=== PATIENT | female | born 1995 | race Caucasian/White ===

== ENCOUNTER → 2019-09-01 | Outpatient (CLI) | payer OTHER ==
[2019-09-01 18:21] LABS: BASO % 0.2 % (0.0-1.0); EOS # 0.1 10^3/uL (0.0-0.5); EOS % 1.1 % (0.0-3.0); HEMATOCRIT 40.2 % (36.0-47.0); HEMOGLOBIN 12.9 g/dl (12.0-15.5); LYMPH # 2.1 10^3/uL (1.5-5.0); LYMPH % 25.9 % (24.0-44.0); MEAN CORPUSCULAR HEMOGLOBIN 29.6 pg (27.0-33.0); MEAN CORPUSCULAR HGB CONC 32.1 g/dl (32.0-36.5); MEAN CORPUSCULAR VOLUME 92.2 fl (80.0-96.0); MONO # 0.6 10^3/uL (0.0-0.8); MONO % 7.2 % (0.0-5.0); NEUTROPHILS # 5.3 10^3/uL (1.5-8.5); NEUTROPHILS % 65.1 % (36.0-66.0); PLATELET COUNT, AUTOMATED 277 10^3/uL (150-450); RED BLOOD COUNT 4.36 10^6/uL (4.00-5.40); WHITE BLOOD COUNT 8.2 10^3/uL (4.0-10.0)
[2019-09-01 21:13] LABS: CHLAMYDIA DNA AMPLIFICATION NEGATIVE (NEGATIVE); GC DNA AMPLIFICATION NEGATIVE (NEGATIVE)
[2019-09-02 12:30] LABS: HEPATITIS C VIRUS ABY INDEX < 0.0 INDEX (<0.8); HIV 1&2 SCREEN CENTAUR NEGATIVE (NEGATIVE); RUBELLA IgG QUALITATIVE IMMUNE (IMMUNE)
== END ==
LOC: M PLALAB 13:43
PROVIDERS: ATTEND Advanced Practice Midwife
DX: Z36.89 Encounter for other specified antenatal screening (principal)

== ENCOUNTER → 2019-09-13 | Outpatient (CLI) | payer OTHER | LOC: M PLALAB 11:56 | PROVIDERS: ATTEND Advanced Practice Midwife | DX: Z36.8A Encounter for antenatal screening for other genetic defects (principal) ==

== ENCOUNTER → 2019-12-13 | Outpatient (CLI) | payer OTHER ==
--- NOTE | 2019-12-13 18:19 | REP ---
Clinical: Anatomical evaluation. Comparison: None . Findings: Examination demonstrates a single live intrauterine in cephalic presentation. motion is identified by technologist. Placenta is noted anterior and grade I without evidence for placenta previa or abruption. Amniotic fluid volume is normal. Cervix measures 4.1 cm in length and appears closed. No evidence for nuchal cord. Gestational age by current measurements 21 weeks 6 days with CARLOS 04/18/2020 . FHR equals 150 beats per minute. BPD 5.3 cm 22 weeks 2 days HC 19.9 cm 22 weeks 0 days AC 17.1 cm 22 weeks 0 days FL 3.8 cm 22 weeks 2 days HL 3.6 cm 22 weeks 3 days HC/AC ratio 1.16 Estimated weight 480 grams ( 55th percentile). Anatomical assessment demonstrates normal structures including cranium, choroid plexus, cavum, cerebellum/posterior fossa, facial features, lungs, diaphragm, stomach, cord insertion, kidneys/bladder, spine, and extremities. A single umbilical artery noted. Limited evaluation of the heart/ventricular outflow tracts. Impression: 1. Single live intrauterine in cephalic presentation. Estimated weight within normal limits. 2. Anatomical limitations and findings as noted above.
== END ==
LOC: M WHC 09:51
PROVIDERS: ATTEND Obstetrics & Gynecology
DX: Z34.92 Encounter for supervision of normal pregnancy, unspecified, second trimester (principal)

== ENCOUNTER → 2020-01-16 | Outpatient (CLI) | payer OTHER ==
--- NOTE | 2020-01-17 02:55 | REP ---
Clinical: Anatomical evaluation. Comparison: 12/13/2019 . Findings: Examination demonstrates a single live intrauterine in cephalic presentation. motion is identified by technologist. Placenta is noted anterior and grade I without evidence for placenta previa or abruption. Amniotic fluid volume is normal. Cervix measures 3.6 cm in length and appears closed. No evidence for nuchal cord. Gestational age by first US 26 weeks 5 days with CARLOS 04/18/2020 . Gestational age by current measurements 26 weeks 6 days with CARLOS 04/17/2020 . FHR equals 143 beats per minute. Estimated weight 993 grams ( 46 percentile based on age by first ultrasound and current measurements ). Anatomical assessment demonstrates normal structures including cranium, facial features, diaphragm, stomach, cord insertion, and kidneys/bladder. Impression: Single live intrauterine in cephalic presentation demonstrating appropriate growth. Two-vessel umbilical cord again noted. Limited evaluation of the heart/ventricular outflow tracts due to positioning.
== END ==
LOC: M WHC 13:19
PROVIDERS: ATTEND Advanced Practice Midwife
DX: Z36.89 Encounter for other specified antenatal screening (principal); Z3A.26 26 weeks gestation of pregnancy

== ENCOUNTER → 2020-02-02 | Outpatient (CLI) | payer OTHER ==
[~2020-02-02] MED LIST: IBUP-1022 PO; LABE100T36 PO; NIFE1TAB52 PO; OXYC1TAB23 PO
--- NOTE | 2020-02-09 14:55 | REP ---
REPEAT DICTATION OBSTETRIC SONOGRAPHY: The study is acquired on February 02, 2020 and is presented to me for repeat dictation on February 04, 2020. HISTORY: Supervision of followup anatomy. FINDINGS: Scanning through the gravid uterus demonstrates a single living intrauterine gestation in a cephalic lie. motion is observed and heart rate is recorded at 147 beats per minute. An anterior grade 1 placenta is seen without evidence of previa or abruption. Amniotic fluid is subjectively normal. Closed cervical length is measured at 3.5 cm, viewed transabdominally. There has been less than expected interval growth in the fetus. The two-vessel umbilical cord is again seen. heart appears abnormal today. There is evidence of discontinuity in the ventricular septum and aorta in the left ventricular outflow tract view. There is some pericardial fluid as well. There is an echogenic focus in the right ventricle. Exam quality is inhibited to some degree by maternal body habitus and position. The following additional anatomic structures are identified today and felt to be unremarkable: cranium, face and profile, diaphragm, left-sided stomach, abdominal wall cord insertion, kidneys and bladder. BIOMETRY CHART: BPD 7.4 cm = 29 weeks 5 days HC 26.9 cm = 29 weeks 2 days AC 25.0 cm = 29 weeks 1 day FL 5.9 cm = 30 weeks 4 days HL 4.9 cm = 28 weeks 6 days HC/AC ratio normal 1.07. Cephalic index normal 0.77. Estimated weight 1436 grams, 3 pounds 2 ounces, 11th percentile for 31 weeks 2 days. IMPRESSION: Viable single intrauterine gestation at 29 weeks 3 days by today's composite criteria. Expected gestational age estimate based on prior sonography is 29 weeks 1 day. CARLOS by prior sonography April 18, 2020. weight estimate is the 11th percentile. heart has an abnormal appearance question of ventricular septal defect. Pericardial fluid. Recommend scanning. Single artery umbilical cord.
== END ==
LOC: M WHC 11:31
PROVIDERS: ATTEND Obstetrics & Gynecology
DX: O35.8XX0 Maternal care for other (suspected) fetal abnormality and damage, not applicable or unspecified (principal); Z3A.29 29 weeks gestation of pregnancy

== ENCOUNTER → 2020-02-14 | Outpatient (CLI) | payer OTHER ==
--- NOTE | 2020-02-14 14:28 | REP ---
Clinical: Growth evaluation. Comparison: 02/02/2020 . Findings: Examination demonstrates a single live intrauterine in cephalic presentation. motion is identified by technologist. Placenta is noted anterior and grade I without evidence for placenta previa or abruption. Amniotic fluid volume is normal. Cervix measures 3.2 cm in length and appears closed. Nuchal cord cannot be excluded. Gestational age by first US 30 weeks 6 days with CARLOS 04/18/2020 . Gestational age by current measurements 29 weeks 3 days with CARLOS 04/28/2020 . FHR equals 147 beats per minute. Estimated weight 1405 grams ( 15th percentile). Impression: Single live intrauterine in cephalic presentation demonstrating relatively normal appropriate interval growth. 2. Nuchal cord cannot be excluded.
== END ==
LOC: M WHC 12:19
PROVIDERS: ATTEND Advanced Practice Midwife
DX: Z34.92 Encounter for supervision of normal pregnancy, unspecified, second trimester (principal)

== ENCOUNTER → 2020-02-21 | Outpatient (REF) | payer OTHER ==
[2020-02-21 15:22] LABS: HEMATOCRIT 36.8 % (36.0-47.0); HEMOGLOBIN 12.1 g/dl (12.0-15.5); MEAN CORPUSCULAR HGB CONC 32.9 g/dl (32.0-36.5); MEAN CORPUSCULAR VOLUME 91.1 fl (80.0-96.0); PLATELET COUNT, AUTOMATED 237 10^3/uL (150-450); RED BLOOD COUNT 4.04 10^6/uL (4.00-5.40); WHITE BLOOD COUNT 11.1 10^3/uL (4.0-10.0)
[2020-02-21 16:03] LABS: ALT/SGPT 29 U/L (12-78); BILIRUBIN,TOTAL 0.2 MG/DL (0.2-1.0); CREATININE FOR GFR 0.71 MG/DL (0.55-1.30); GLOMERULAR FILTRATION RATE > 60.0 (>60); LDH LACTATE DEHYDROGENASE 211 U/L (84-246)
[2020-02-21 17:50] LABS: CREATININE,RANDOM URINE 52.7 MG/DL; TOTAL PROTEIN,RANDOM URINE 103.2 MG/DL (0.0-12.0)
== END ==
LOC: M PLALAB 13:14
PROVIDERS: ATTEND Advanced Practice Midwife
DX: O12.03 Gestational edema, third trimester (principal)

== ENCOUNTER 2020-02-22 05:44 | Inpatient (IN) | payer OTHER ==
[~2020-02-22] VITALS: Ht 160 cm; Wt 96.0 kg
[2020-02-22] VITALS (55 sets, daily range): BP systolic 124–206; BP diastolic 72–111
[2020-02-22] MEDS ORDERED: MAGNESIUM *L&D* 4GM/100ML BAG (40MG/ML) As Ordered ONE (06:11)
[2020-02-22] MEDS ORDERED: MAGNESIUM SULFATE 4% INJ 20GM/500ML (40MG/ML) As Ordered ONE (06:11)
[2020-02-22] MEDS ORDERED: LABETALOL 100MG/20ML VIAL As Ordered ONE (06:12)
[2020-02-22] MEDS ORDERED: ONDANSETRON 4MG/2ML VIAL As Ordered ONE (06:19)
[2020-02-22 06:29] LABS: HEMOGLOBIN 12.9 g/dl (12.0-15.5); MEAN CORPUSCULAR HEMOGLOBIN 29.9 pg (27.0-33.0); MEAN CORPUSCULAR HGB CONC 33.9 g/dl (32.0-36.5); PLATELET COUNT, AUTOMATED 248 10^3/uL (150-450); RED BLOOD COUNT 4.32 10^6/uL (4.00-5.40); WHITE BLOOD COUNT 13.4 10^3/uL (4.0-10.0)
[2020-02-22] MEDS ORDERED: LABETALOL 100MG/20ML VIAL IV ONE (06:30)
[2020-02-22] MEDS ORDERED: ONDANSETRON 4MG/2ML VIAL IV PRN (06:30)
[2020-02-22] MEDS ORDERED: MAG Sulf (L&D) 4 GM/100 ML 4 GM in IV 1 EA IV ONE (06:30)
[2020-02-22] MEDS: MAG Sulf (OBGYN) 20GM/500ML 20,000 MG in IV 1 EA IV SCH ×2 (06:39→20:31)
[2020-02-22] MEDS ORDERED: LABETALOL 100MG/20ML VIAL IV STA ×3 (06:48→08:13)
[2020-02-22 06:49] LABS: ALT/SGPT 35 U/L (12-78); BILIRUBIN,TOTAL 0.2 MG/DL (0.2-1.0); CREATININE FOR GFR 0.73 MG/DL (0.55-1.30); GLOMERULAR FILTRATION RATE > 60.0 (>60); LDH LACTATE DEHYDROGENASE 226 U/L (84-246); URIC ACID 5.1 MG/DL (2.6-6.0)
[2020-02-22] MEDS: BETAMETHASONE SOLUSPAN 6MG/ML 5ML VIAL (J0702 PER 3MG) IM SCH ×2 (08:15→20:31)
[2020-02-22] MEDS: LR 1,000 ML IV SCH ×2 (08:23→20:31)
[2020-02-22] MEDS: miSOPROStol 50 MCG 1/2 TAB (S0191) PO SCH ×4 (08:41→20:31)
[2020-02-22] MEDS: ACETAMINOPHEN 500 MG TAB PO PRN ×2 (08:41→16:06)
[2020-02-22] MEDS ORDERED: PENICILLIN G POTASSIUM IV 5 MU in D5W MINI-BAG PLUS 100 ML IV STA (08:45)
--- NOTE | 2020-02-22 10:12 | HPE ---
DATE OF ADMISSION: 02/22/2020 24-year-old, (G) 1, para (P) 0 female at 34 and 1/7 weeks gestation by last menstrual period (LMP) and consistent with 8 week ultrasound, with expected date of confinement (EDC) of 04/03/2020 who presents by ambulance after experiencing severe headaches, as well as, blurred vision. She had actually been experiencing headaches and lower extremity edema for several days, but it got significantly worse. She was in the office on 02/21/2020 and had a normal blood pressure of 128/76. However, she expressed concern for her headaches and personally requested a preeclampsia panel be drawn. It was significant for an elevated urine protein, among other things. COURSE: The patient[facility] Her first trimester blood pressure was 122/74. She had an ultrasound on 02/02/2020 which showed a possible VSD, however, this could not be confirmed. Also had a two vessel umbilical cord. The patient has been referred to the center for followup of possible cardiac defect in the fetus, however, the appointment is scheduled for later this month and has not happened yet. The patient also has had questionable growth on two ultrasounds with estimated weight ranging between the 11th to 15th percentile. MEDICAL HISTORY: Tuberous sclerosis. SURGICAL HISTORY: None. ALLERGIES: None. SOCIAL HISTORY: The patient denies cigarettes, alcohol or drug use. She is . She lives in [place]. FAMILY HISTORY: Both mother and father were diagnosed with hypertension. PHYSICAL EXAMINATION: Blood pressure 206/106. Pulse 120. Afebrile. She appears uncomfortable and is covering her eyes. She has 1+ edema in her lower extremities, hands and face. Lungs: Clear. Heart: Regular. Abdomen: Nontender. Gravid. heart tones Category 1. Contractions - none. LABS: Serum creatinine is 0.71. Urine PC ratio 1.95. ASSESSMENT: 24-year-old, G1, at 34 and 1/7 weeks gestation who presents with preeclampsia demonstrating severe features. PLAN: The patient is admitted on 02/22/2020. Will administer magnesium sulfate for seizure prophylaxis. Will administer antihypertensives to regulate blood pressure. Once stabilized, will likely move towards delivery. Will consider steroids if there appears to be enough time to gain effect.
[2020-02-22 10:51] LABS: HEMATOCRIT 37.2 % (36.0-47.0); HEMOGLOBIN 12.6 g/dl (12.0-15.5); MEAN CORPUSCULAR HEMOGLOBIN 30.2 pg (27.0-33.0); MEAN CORPUSCULAR HGB CONC 33.9 g/dl (32.0-36.5); MEAN CORPUSCULAR VOLUME 89.2 fl (80.0-96.0); PLATELET COUNT, AUTOMATED 273 10^3/uL (150-450); RED BLOOD COUNT 4.17 10^6/uL (4.00-5.40); WHITE BLOOD COUNT 17.5 10^3/uL (4.0-10.0)
[2020-02-22 11:12] LABS: ALT/SGPT 30 U/L (12-78); BILIRUBIN,TOTAL 0.4 MG/DL (0.2-1.0); CREATININE FOR GFR 0.82 MG/DL (0.55-1.30); GLOMERULAR FILTRATION RATE > 60.0 (>60); LDH LACTATE DEHYDROGENASE 238 U/L (84-246); MAGNESIUM LEVEL 5.5 MG/DL (1.8-2.4); URIC ACID 5.6 MG/DL (2.6-6.0)
[2020-02-22] MEDS: PENICILLIN G POTASSIUM IV 2.5 MU in IV 1 EA IV SCH ×3 (13:18→20:40)
[2020-02-22] MEDS ORDERED: OXYTOCIN DRIP 30 UNITS in IV 1 EA IV SCH (23:30)
[2020-02-23] VITALS (31 sets, daily range): BP systolic 106–142; BP diastolic 62–91
[2020-02-23] MEDS: PENICILLIN G POTASSIUM IV 2.5 MU in IV 1 EA IV SCH ×3 (00:33→09:43)
[2020-02-23 05:53] LABS: HEMATOCRIT 35.6 % (36.0-47.0); MEAN CORPUSCULAR HEMOGLOBIN 30.2 pg (27.0-33.0); MEAN CORPUSCULAR HGB CONC 33.7 g/dl (32.0-36.5); MEAN CORPUSCULAR VOLUME 89.4 fl (80.0-96.0); PLATELET COUNT, AUTOMATED 298 10^3/uL (150-450); RED BLOOD COUNT 3.98 10^6/uL (4.00-5.40); WHITE BLOOD COUNT 22.1 10^3/uL (4.0-10.0)
[2020-02-23 06:13] LABS: ALT/SGPT 31 U/L (12-78); BILIRUBIN,TOTAL 0.3 MG/DL (0.2-1.0); CREATININE FOR GFR 1.01 MG/DL (0.55-1.30); GLOMERULAR FILTRATION RATE > 60.0 (>60); LDH LACTATE DEHYDROGENASE 221 U/L (84-246); URIC ACID 6.7 MG/DL (2.6-6.0)
[2020-02-23] MEDS: LR 1,000 ML IV SCH ×2 (09:32→16:48)
[2020-02-23] MEDS ORDERED: LR 1,000 ML IV SCH (11:34)
[2020-02-23] MEDS ORDERED: MORPHINE PRES-FREE INJ 10 MG/10 ML VIAL (J2274) As Ordered ONE (11:44)
[2020-02-23] MEDS ORDERED: OXYTOCIN INJ 10 UNITS/ML VIAL (J2590) As Ordered ONE (11:45)
[2020-02-23] MEDS ORDERED: ONDANSETRON 4MG/2ML VIAL As Ordered ONE (11:45)
[2020-02-23] MEDS ORDERED: BICITRA 30ML SOLN UDC PO ONE (11:45)
[2020-02-23] MEDS ORDERED: dexameTHASONE 4 MG/ML 1ML VIAL (J1100 PER 1MG) As Ordered ONE (11:45)
[2020-02-23] MEDS ORDERED: KETOROLAC 60MG 2ML VIAL As Ordered ONE (11:45)
[2020-02-23] MEDS ORDERED: ceFAZolin SOD 2 GM in IV 1 EA IV ONE (11:45)
[2020-02-23] MEDS ORDERED: PHENYLephrine HCL 500 MCG/5 ML (100MCG/ML) SYRINGE (J2370) As Ordered ONE (11:46)
[2020-02-23] MEDS ORDERED: ePHEDrine SULFATE 25 MG/5 ML(5MG/ML) SYRINGE As Ordered ONE (11:46)
[2020-02-23] MEDS ORDERED: OXYTOCIN 30 UNITS IN 0.9% NaCl 500ML IV BAG (J2590) As Ordered ONE (11:53)
[2020-02-23] MEDS ORDERED: ceFAZolin 2 GM/D5W 50 ML IV BAG (J0690 PER 500MG) As Ordered ONE (12:26)
[2020-02-23 13:21] LABS: CORD GAS ABE A -6.2; CORD GAS HCO3 A 24.3 MEQ/L; CORD GAS O2 SAT A 26.6 %; CORD GAS PCO2 A 68.5 mmHg; CORD GAS PH A 7.168 UNITS; CORD GAS PO2 A 17.7 mmHg; CORD GAS SBC A 17.7 MEQ/L; CORD GAS TCO2 A 26.4 MEQ/L
[2020-02-23 13:23] LABS: CORD GAS ABE V -6.2; CORD GAS HCO3 V 22.8 MEQ/L; CORD GAS O2 SAT V 49.8 %; CORD GAS PCO2 V 57.8 mmHg; CORD GAS PH V 7.214 UNITS; CORD GAS PO2 V 25.1 mmHg; CORD GAS SBC V 18.3 MEQ/L; CORD GAS TCO2 V 24.6 MEQ/L
[2020-02-23] MEDS ORDERED: OXYTOCIN DRIP 30 UNITS in IV 1 EA IV SCH (13:34)
[2020-02-23] MEDS ORDERED: RHOGAM 300 MCG (1500 IU) INJ (J2790) IM SCH (13:45)
[2020-02-23] MEDS ORDERED: ONDANSETRON 4MG/2ML VIAL IV PRN (13:45)
[2020-02-23] MEDS ORDERED: DOCUSATE SODIUM 100 MG CAP PO PRN (13:45)
[2020-02-23] MEDS ORDERED: PERCOCET 5MG/325MG TAB PO PRN (13:45)
[2020-02-23] MEDS ORDERED: MEASLES,MUMPS,RUBELLA VACCINE INJ (MMR-II) (90707) SC SCH (13:45)
[2020-02-23] MEDS: MAG Sulf (OBGYN) 20GM/500ML 20,000 MG in IV 1 EA IV SCH (17:30)
[2020-02-23] MEDS ORDERED: diphenhydrAMINE 50MG/ML VIAL (J1200) As Ordered ONE (17:37)
[2020-02-23] MEDS: diphenhydrAMINE 50MG/ML VIAL (J1200) IV PRN ×2 (17:39→21:54)
[2020-02-23] MEDS: KETOROLAC 30 MG/ML 1ML VIAL IV SCH (18:35)
[2020-02-24] VITALS (14 sets, daily range): BP systolic 118–174; BP diastolic 75–93
[2020-02-24] MEDS: LR 1,000 ML IV SCH ×2 (00:28→09:29)
[2020-02-24] MEDS: KETOROLAC 30 MG/ML 1ML VIAL IV SCH ×2 (01:28→07:41)
[2020-02-24 07:49] LABS: HEMOGLOBIN 10.1 g/dl (12.0-15.5); MEAN CORPUSCULAR HEMOGLOBIN 29.7 pg (27.0-33.0); MEAN CORPUSCULAR HGB CONC 32.6 g/dl (32.0-36.5); MEAN CORPUSCULAR VOLUME 91.2 fl (80.0-96.0); PLATELET COUNT, AUTOMATED 243 10^3/uL (150-450); WHITE BLOOD COUNT 18.3 10^3/uL (4.0-10.0)
[2020-02-24] MEDS ORDERED: OXYC1TAB23 PO (07:50)
[2020-02-24] MEDS ORDERED: IBUP-1022 PO (07:51)
[2020-02-24] MEDS: PRENATAL VITAMINS CHEWABLE TABLET PO SCH (09:31)
[2020-02-24] MEDS: PERCOCET 5MG/325MG TAB PO PRN (14:20)
[2020-02-24] MEDS: IBUPROFEN 800 MG TAB PO SCH ×2 (14:54→22:55)
[2020-02-24] MEDS ORDERED: SLF 3 ML SYR IV PRN (15:45)
[2020-02-24] MEDS: SLF 3 ML SYR IV SCH (22:05)
[2020-02-25] VITALS (12 sets, daily range): BP systolic 141–185; BP diastolic 80–100
[2020-02-25] MEDS: SLF 3 ML SYR IV SCH ×3 (06:23→20:51)
[2020-02-25] MEDS: IBUPROFEN 800 MG TAB PO SCH ×2 (06:24→14:58)
[2020-02-25] MEDS ORDERED: LABE100T36 PO (07:36)
[2020-02-25] MEDS: PRENATAL VITAMINS CHEWABLE TABLET PO SCH (07:59)
--- NOTE | 2020-02-25 08:29 | IPNPDOC ---
Text Note Date of Service The patient was seen on 02/25/20. NOTE PO #2 Reports adequate pain management. Denies severe headache, visual disturbances, chest pain. Tolerating regular diet. Voiding and passing flatus. BP over night 140's-150's/70's-90's. BP this am 182/92. Anxious to get to [place] to see baby. Pumping. Dressing intact. Fundus firm, NT Lochia rubra scant without odor PO #2, post magnesium sulfate for severe preeclampsia Consulted Dr Cervantes. Start labetalol 100mg BID. Consider discharge if pressures are improved. VS,Fishbone, I+O VS, Fishbone, I+O Vital Signs Date Time Temp Pulse Resp B/P (MAP) Pulse Ox O2 Delivery O2 Flow Rate FiO2 02/25/20 08:00 68 182/93 02/25/20 06:00 98.4 18 02/24/20 22:00 97 Room Air I&O- Last 24 Hours up to 6 AM 02/25/20 05:59 Intake Total 2350 ml Output Total 3970 ml Balance -1620 ml Flavia La CNM Feb 25, 2020 08:29
[2020-02-25] MEDS ORDERED: LABETALOL 100 MG TAB PO SCH ×2 (09:00→16:00)
[2020-02-25] MEDS ORDERED: MOM 30ML SUSPENSION UDC PO ONE (09:00)
[2020-02-25] MEDS: DOCUSATE SODIUM 100 MG CAP PO SCH ×2 (09:16→20:51)
[2020-02-25 16:24] LABS: HEMATOCRIT 31.2 % (36.0-47.0); HEMOGLOBIN 10.1 g/dl (12.0-15.5); MEAN CORPUSCULAR HGB CONC 32.4 g/dl (32.0-36.5); MEAN CORPUSCULAR VOLUME 92.6 fl (80.0-96.0); PLATELET COUNT, AUTOMATED 249 10^3/uL (150-450); RED BLOOD COUNT 3.37 10^6/uL (4.00-5.40); WHITE BLOOD COUNT 11.6 10^3/uL (4.0-10.0)
[2020-02-25 16:42] LABS: ALT/SGPT 23 U/L (12-78); BILIRUBIN,TOTAL 0.2 MG/DL (0.2-1.0); CREATININE FOR GFR 0.76 MG/DL (0.55-1.30); GLOMERULAR FILTRATION RATE > 60.0 (>60); LDH LACTATE DEHYDROGENASE 228 U/L (84-246); URIC ACID 5.6 MG/DL (2.6-6.0)
[2020-02-25] MEDS: LABETALOL 200 MG TAB PO SCH (20:51)
[2020-02-26] VITALS (9 sets, daily range): BP systolic 157–192; BP diastolic 77–110
[2020-02-26] MEDS: IBUPROFEN 800 MG TAB PO SCH ×3 (00:17→14:51)
[2020-02-26] MEDS: SLF 3 ML SYR IV SCH ×2 (06:00→14:41)
[2020-02-26] MEDS ORDERED: NIFEdipine 30 MG XL TAB PO SCH (09:00)
[2020-02-26] MEDS: PRENATAL VITAMINS CHEWABLE TABLET PO SCH (09:03)
[2020-02-26] MEDS: DOCUSATE SODIUM 100 MG CAP PO SCH (09:03)
[2020-02-26] MEDS: LABETALOL 200 MG TAB PO SCH ×2 (09:03→15:35)
[2020-02-26] MEDS: PERCOCET 5MG/325MG TAB PO PRN (10:14)
[2020-02-26] MEDS ORDERED: NIFE1TAB52 PO (15:24)
--- NOTE | 2020-02-26 15:34 | DS.PDOC ---
Discharge Summary General Date of Admission Feb 22, 2020 at 06:13 Date of Discharge 02/26/2020 Attending Physician: JUAN PABLO KIM MD Discharge Summary PROCEDURES PERFORMED DURING STAY: 1. section 2. Spinal anesthesia. ADMITTING DIAGNOSES: 1. Preeclampsia with severe features. DISCHARGE DIAGNOSES: 1. Preeclampsia was severe features. COMPLICATIONS/CHIEF COMPLAINT: Labor Check. HISTORY OF PRESENT ILLNESS: This patient is a 24-year-old 1 that presented at 34 weeks 1 day estimated gestational age with severe headache as well as blurred vision. She had severely elevated blood pressures on arrival and was admitted with diagnoses of preeclampsia was severe features. She was started with an induction of labor. She eventually had a section was unremark able. She was then continued with magnesium sulfate therapy for greater than 24 hours. She diuresed well. She was then managed for hypertensive control. She was eventually started on labetalol and was discharged home in stable condition on labetalol 200 mg 3 times a day in the nifedipine 30 mg daily. She is instructed on 3 times a day blood pressure checks at home and will follow up in 1 week DISCHARGE MEDICATIONS: Please see below. ALLERGIES: Please see below. PHYSICAL EXAMINATION ON DISCHARGE: VITAL SIGNS: Please see below. GENERAL: Well-appearing. No acute distress ABDOMINAL EXAMINATION: Soft, appropriately tender. Fundus is below umbilicus. Her incision was dressed EXTREMITIES:. Negative calf tenderness NEUROLOGICAL EXAMINATION: Grossly intact PSYCHIATRIC EXAMINATION:. Appropriate LABORATORY DATA: Please see below. ACTIVITY: As tolerated. DIET: Regular DISCHARGE PLAN:. Follow-up in 1 week DISPOSITION: Home. DISCHARGE INSTRUCTIONS: 1. Remove dressing and one week. 2. Remain on pelvic rest for 6 weeks. 3. Reports severe pain, heavy vaginal bleeding, fever, incisional issues. Persistent headaches, visual changes. ITEMS TO FOLLOWUP ON ON OUTPATIENT: 1. None. DISCHARGE CONDITION: Stable. Vital Signs/I&Os Vital Signs Date Time Temp Pulse Resp B/P (MAP) Pulse Ox O2 Delivery O2 Flow Rate FiO2 02/26/20 15:21 178/110 (132) 02/26/20 13:00 57 02/26/20 11:01 16 Room Air 02/26/20 10:00 97.2 02/26/20 10:00 98 Laboratory Data Labs 24H Laboratory Tests 2 02/25/20 15:57: Nucleated Red Blood Cells % (auto) 0.0, Glomerular Filtration Rate > 60.0, Uric Acid 5.6, Total Bilirubin 0.2, Aspartate Amino Transf (AST/SGOT) 21, Alanine Aminotransferase (ALT/SGPT) 23, Lactate Dehydrogenase 228 CBC/BMP Laboratory Tests 02/25/20 15:57 Discharge Medications Scheduled Ibuprofen (Ibuprofen) 600 Mg Tablet, 1 TAB PO TID for pain with food Labetalol HCl (Labetalol HCl) 100 Mg Tablet, 1 TAB PO BID Nifedipine (Nifedipine ER) 30 Mg Tab.er.24, 30 MG PO DAILY Scheduled PRN Oxycodone HCl/Acetaminophen (Oxycodone-Acetaminophen 5-325) 1 Each Tablet, 1 TAB PO TIDP PRN for pain Allergies Coded Allergies: No Known Allergies (Unverified , 02/22/20) TALA STUART MD. Feb 26, 2020 15:34
--- NOTE | 2020-03-01 17:17 | RO ---
DATE OF PROCEDURE: 02/23/2020 PREOPERATIVE DIAGNOSIS: 34-2/7 weeks gestation, preeclampsia, severe features, intolerance and labor remote to delivery. POSTOPERATIVE DIAGNOSIS: 34-2/7 weeks gestation, preeclampsia, severe features, intolerance and labor remote to delivery. PROCEDURE: Primary low transverse section. SURGEON: Moe Monahan MD PILOT STEAM YACHT: Anisa Lea MD ANESTHESIA: Spinal. ESTIMATED BLOOD LOSS: 500 mL. URINE OUTPUT: 75 mL. FINDINGS: 1540 gram (3 pound 6 ounce) female . score 6 and 9. Vertex position. Nuchal cord times one. Normal uterus, fallopian tubes, and ovaries. DESCRIPTION OF PROCEDURE: Patient was taken to the operating room where spinal anesthesia was induced. She was prepped and draped in sterile fashion in the supine position. A Galindo catheter was placed. A Pfannenstiel skin incision was made with the scalpel and carried through to the fascia. The fascia was nicked and extended. The fascia was dissected off the rectus muscles. The peritoneal cavity was entered sharply. A Mobius retractor was placed. A curvilinear incision was made in the lower uterine segment until clear fluid was noted. This was extended manually. The was delivered from the vertex position without difficulty. The cord was doubly clamped and cut. The infant was handed off to the awaiting construction framer. The placenta was expressed. The uterus was closed with #0 Vicryl in a running locked fashion. A second imbricating layer of #0 Vicryl was placed. The peritoneum was closed with #2-0 Vicryl in a running fashion. The fascia was closed with #0 Vicryl. The deep layer was irrigated and closed with #2-0 chromic. The skin was closed with #4-0 Monocryl subcuticular sutures. Sponge, instrument, and needle counts were correct.
== END 2020-02-26 16:15 | disposition home or self-care (01) | DRG 773 ==
LOC: M LDO 05:44 → M LDI 06:13 → M OBS 02-24 14:29
PROVIDERS: ADMIT Specialist; ATTEND Specialist
PROC: 3E0P7GC Introduction of Other Therapeutic Substance into Female Reproductive, Via Natural or Artificial Opening (ICD-10-PCS; 2020-02-22)
PROC: 10D00Z1 Extraction of Products of Conception, Low, Open Approach (ICD-10-PCS; principal; 2020-02-23 12:27)
DX: O14.14 Severe pre-eclampsia complicating childbirth (principal); Z3A.34 34 weeks gestation of pregnancy; Z37.0 Single live birth

== ENCOUNTER → 2020-12-25 | Outpatient (CLI) | payer OTHER ==
[~2020-12-25] MED LIST changes: -LABE100T36 PO; +LABE100T5 PO; +PROHANCE 279.3MG/ML 15ML VIAL As Ordered ONE; +PROHANCE 279.3MG/ML 5ML VIAL As Ordered ONE
--- NOTE | 2020-12-25 19:54 | REPVR ---
PROCEDURE INFORMATION: Exam: MR Head Without and With Contrast Exam date and time: 12/25/2020 6:44 PM Age: 24 years old Clinical indication: Condition or disease; Patient HX: PT states she was given the diagnosis of tuberous sclerosis as a toddler, no symptoms or imaging done. TECHNIQUE: Imaging protocol: MR of the head without and with intravenous contrast. Contrast material: PROHANCE; Contrast volume: 16 ml; Contrast route: INTRAVENOUS (IV); COMPARISON: No relevant prior studies available. FINDINGS: Brain: Normal. No acute infarct. No hemorrhage. No significant white matter disease. No edema. No sub appended below nodularity or white matter abnormalities to suggest cortical tubers. Cerebral ventricles: Normal. No ventriculomegaly. Bones/joints: Unremarkable. Paranasal sinuses: Normal as visualized. No acute sinusitis. Mastoid air cells: Normal as visualized. No mastoid effusion. Orbital cavity: Unremarkable. Soft tissues: Unremarkable. IMPRESSION: No acute or chronic findings. Electronically signed by: Chris Myers On 12/25/2020 19:53:43 PM
== END ==
LOC: M RAD 17:59
PROVIDERS: ATTEND Physician Assistant
DX: Q85.1 Tuberous sclerosis (principal)
CPT/HCPCS: 70553; A9576

== ENCOUNTER 2021-01-02 13:30 | Emergency (ER) | payer OTHER ==
[~2021-01-02] VITALS: Ht 160 cm; Wt 84.1 kg
[~2021-01-02 13:30] MED LIST changes: -PROHANCE 279.3MG/ML 15ML VIAL As Ordered ONE; -PROHANCE 279.3MG/ML 5ML VIAL As Ordered ONE
[2021-01-02 13:31] VITALS: BP 118/77
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
== END 2021-01-02 16:00 | disposition home or self-care (01) ==
LOC: M ED 13:30
DX: S16.1XXA Strain of muscle, fascia and tendon at neck level, initial encounter (principal); S09.90XA Unspecified injury of head, initial encounter; V49.49XA Driver injured in collision with other motor vehicles in traffic accident, initial encounter; Y92.410 Unspecified street and highway as the place of occurrence of the external cause

== ENCOUNTER → 2021-07-09 | Outpatient (CLI) | payer OTHER ==
[2021-07-09 15:24] LABS: APPEARANCE, URINE HAZY (CLEAR); BACTERIA, URINE AUTO 1+ (NEGATIVE); BILIRUBIN, URINE AUTO NEGATIVE (NEGATIVE); BLOOD, URINE BLOOD NEGATIVE (NEGATIVE); COLOR, URINE YELLOW (YELLOW); GLUCOSE, URINE (UA) AUTO NEGATIVE (NEGATIVE); KETONE, URINE AUTO NEGATIVE (NEGATIVE); LEUKOCYTE ESTERASE, URINE AUTO NEGATIVE (NEGATIVE); MUCUS, URINE SMALL (NEGATIVE); NITRITE, URINE AUTO NEGATIVE (NEGATIVE); PROTEIN, URINE AUTO NEGATIVE (NEGATIVE); RBC, URINE AUTO 1 /HPF (0-3); SPECIFIC GRAVITY URINE AUTO 1.023 (1.002-1.035); SQUAMOUS EPITHELIAL CELL UR AU 4 /HPF (0-6); UROBILINOGEN, URINE AUTO 0.2 mg/dL (0.0-2.0); WBC, URINE AUTO 2 /HPF (0-3)
== END ==
LOC: M RAD 14:10
PROVIDERS: ATTEND Physician Assistant
DX: N39.46 Mixed incontinence (principal)

== ENCOUNTER → 2021-07-15 | Outpatient (REF) | payer OTHER ==
[2021-07-15 18:38] LABS: APPEARANCE, URINE HAZY (CLEAR); BACTERIA, URINE AUTO 1+ (NEGATIVE); BILIRUBIN, URINE AUTO NEGATIVE (NEGATIVE); BLOOD, URINE BLOOD NEGATIVE (NEGATIVE); COLOR, URINE YELLOW (YELLOW); GLUCOSE, URINE (UA) AUTO NEGATIVE (NEGATIVE); KETONE, URINE AUTO NEGATIVE (NEGATIVE); LEUKOCYTE ESTERASE, URINE AUTO NEGATIVE (NEGATIVE); MUCUS, URINE SMALL (NEGATIVE); NITRITE, URINE AUTO NEGATIVE (NEGATIVE); PROTEIN, URINE AUTO NEGATIVE (NEGATIVE); RBC, URINE AUTO 0 /HPF (0-3); SPECIFIC GRAVITY URINE AUTO 1.016 (1.002-1.035); SQUAMOUS EPITHELIAL CELL UR AU 2 /HPF (0-6); UROBILINOGEN, URINE AUTO 0.2 mg/dL (0.0-2.0); WBC, URINE AUTO 3 /HPF (0-3)
== END ==
LOC: M SMT 16:59
PROVIDERS: ATTEND Nurse Practitioner Women's Health
DX: R35.0 Frequency of micturition (principal)

== ENCOUNTER 2022-01-01 16:00 | Emergency (ER) | payer OTHER ==
[~2022-01-01] VITALS: Ht 160 cm; Wt 90.9 kg
[2022-01-01 16:01] VITALS: BP 129/81
[2022-01-01] MEDS ORDERED: LEXA1TAB2 (16:24)
[2022-01-01] MEDS ORDERED: KETOROLAC 30 MG/ML 1ML VIAL IV ONE (18:00)
[2022-01-01 20:33] LABS: BASO % 0.5 % (0.0-1.0); EOS # 0.1 10^3/uL (0.0-0.5); EOS % 1.9 % (0.0-3.0); HEMATOCRIT 44.8 % (36.0-47.0); HEMOGLOBIN 14.4 g/dl (12.0-15.5); LYMPH # 2.7 10^3/uL (1.5-5.0); LYMPH % 42.4 % (24.0-44.0); MEAN CORPUSCULAR HEMOGLOBIN 28.3 pg (27.0-33.0); MEAN CORPUSCULAR HGB CONC 32.1 g/dl (32.0-36.5); MEAN CORPUSCULAR VOLUME 88.2 fl (80.0-96.0); MONO # 0.5 10^3/uL (0.0-0.8); MONO % 8.1 % (2.0-8.0); NEUTROPHILS % 46.6 % (36.0-66.0); PLATELET COUNT, AUTOMATED 296 10^3/uL (150-450); RED BLOOD COUNT 5.08 10^6/uL (4.00-5.40); WHITE BLOOD COUNT 6.4 10^3/uL (4.0-10.0)
[2022-01-01 20:53] LABS: BLOOD UREA NITROGEN 14 MG/DL (7-18); CALCIUM LEVEL 9.9 MG/DL (8.5-10.1); CARBON DIOXIDE LEVEL 28 MEQ/L (21-32); CHLORIDE LEVEL 107 MEQ/L (98-107); CREATININE FOR GFR 0.76 MG/DL (0.55-1.30); GLOMERULAR FILTRATION RATE > 60.0 (>60); GLUCOSE, FASTING 86 MG/DL (70-100); POTASSIUM SERUM 4.2 MEQ/L (3.5-5.1); SODIUM LEVEL 141 MEQ/L (136-145)
== END 2022-01-01 22:29 | disposition home or self-care (01) ==
LOC: M ED 16:00
DX: R07.9 Chest pain, unspecified (principal); M54.9 Dorsalgia, unspecified; I45.19 Other right bundle-branch block
CPT/HCPCS: 71046; 80048; 84484; 85025; 85379; 93005; 96374; 99284; J1885

== ENCOUNTER 2022-01-07 19:39 | Emergency (ER) | payer OTHER ==
[~2022-01-07] VITALS: Ht 160 cm; Wt 88.0 kg
[~2022-01-07 19:39] MED LIST changes: -BACL10TA2 PO
[2022-01-07] MEDS ORDERED: BACL10TA2 PO (20:37)
[2022-01-07 21:41] LABS: BASO % 0.4 % (0.0-1.0); EOS # 0.1 10^3/uL (0.0-0.5); EOS % 1.8 % (0.0-3.0); HEMATOCRIT 32.1 % (36.0-47.0); LYMPH # 3.2 10^3/uL (1.5-5.0); LYMPH % 45.6 % (24.0-44.0); MEAN CORPUSCULAR HEMOGLOBIN 29.5 pg (27.0-33.0); MONO # 0.5 10^3/uL (0.0-0.8); MONO % 7.1 % (2.0-8.0); NEUTROPHILS # 3.2 10^3/uL (1.5-8.5); NEUTROPHILS % 44.7 % (36.0-66.0); PLATELET COUNT, AUTOMATED 234 10^3/uL (150-450); RED BLOOD COUNT 3.69 10^6/uL (4.00-5.40); WHITE BLOOD COUNT 7.1 10^3/uL (4.0-10.0)
[2022-01-07 21:45] LABS: HEMOGLOBIN 10.9 g/dl (12.0-15.5)
[2022-01-07 22:08] LABS: HCG, SERUM QUALITATIVE NEGATIVE (NEGATIVE)
[2022-01-07 22:13] LABS: CK-MB VALUE MASS < 1.0 NG/ML (<3.6); CPK CREATINE PHOSPHOKINASE 93 U/L (26-192); MB/CK RELATIVE INDEX 1.08 (< OR =4)
[2022-01-07 22:18] LABS: ALBUMIN 3.1 GM/DL (3.2-5.2); ALT/SGPT 24 U/L (12-78); BILIRUBIN,DIRECT < 0.1 MG/DL (0.0-0.2); BILIRUBIN,TOTAL 0.2 MG/DL (0.2-1.0); BLOOD UREA NITROGEN 14 MG/DL (7-18); CALCIUM LEVEL 8.5 MG/DL (8.5-10.1); CARBON DIOXIDE LEVEL 27 MEQ/L (21-32); CHLORIDE LEVEL 110 MEQ/L (98-107); FREE T4 0.91 NG/DL (0.76-1.46); GLOMERULAR FILTRATION RATE > 60.0 (>60); GLUCOSE, FASTING 100 MG/DL (70-100); LIPASE 188 U/L (73-393); NT-PRO BNP 90 PG/ML (<125); POTASSIUM SERUM 3.9 MEQ/L (3.5-5.1); SODIUM LEVEL 142 MEQ/L (136-145); TOTAL PROTEIN 6.1 GM/DL (6.4-8.2)
[2022-01-07] MEDS ORDERED: ISOVUE-370 76% 100ML VIAL As Ordered ONE (22:36)
[2022-01-07 22:49] LABS: HEMATOCRIT 34.1 % (36.0-47.0); HEMOGLOBIN 11.5 g/dl (12.0-15.5); MEAN CORPUSCULAR HEMOGLOBIN 29.5 pg (27.0-33.0); MEAN CORPUSCULAR HGB CONC 33.7 g/dl (32.0-36.5); MEAN CORPUSCULAR VOLUME 87.4 fl (80.0-96.0); PLATELET COUNT, AUTOMATED 236 10^3/uL (150-450); WHITE BLOOD COUNT 6.8 10^3/uL (4.0-10.0)
[2022-01-08 00:30] VITALS: BP 117/81
== END 2022-01-08 01:20 | disposition home or self-care (01) ==
LOC: EDBD 19:39 → M ED 19:39
DX: R07.89 Other chest pain (principal); R06.02 Shortness of breath; F33.9 Major depressive disorder, recurrent, unspecified; M54.50 Low back pain, unspecified; R16.1 Splenomegaly, not elsewhere classified; R10.812 Left upper quadrant abdominal tenderness; Z79.899 Other long term (current) drug therapy
CPT/HCPCS: 36415; 71045; 71275; 76705; 80048; 80053; 80076; 82550; 82553; 83690; 83880; 84439; 84443; 84484; 84703; 85025; 85027; 86140; 86308; 86664; 86665; 93005; 93041; 94760; 99285; Q9967

== ENCOUNTER → 2022-01-07 | Outpatient (CLI) | payer OTHER ==
[~2022-01-07] MED LIST changes: +BACL10TA2 PO; +LEXA1TAB2
[2022-01-07 13:19] LABS: BASO % 0.6 % (0.0-1.0); EOS # 0.1 10^3/uL (0.0-0.5); EOS % 1.4 % (0.0-3.0); HEMATOCRIT 39.8 % (36.0-47.0); LYMPH # 2.4 10^3/uL (1.5-5.0); LYMPH % 36.8 % (24.0-44.0); MEAN CORPUSCULAR HGB CONC 32.7 g/dl (32.0-36.5); MEAN CORPUSCULAR VOLUME 88.6 fl (80.0-96.0); MONO # 0.4 10^3/uL (0.0-0.8); MONO % 6.6 % (2.0-8.0); NEUTROPHILS # 3.5 10^3/uL (1.5-8.5); NEUTROPHILS % 54.1 % (36.0-66.0); PLATELET COUNT, AUTOMATED 265 10^3/uL (150-450); RED BLOOD COUNT 4.49 10^6/uL (4.00-5.40); WHITE BLOOD COUNT 6.5 10^3/uL (4.0-10.0)
[2022-01-07 13:20] LABS: MONO REFLEX EBV COMP NEGATIVE (NEGATIVE)
[2022-01-07 13:25] LABS: ALBUMIN 3.6 GM/DL (3.2-5.2); ALT/SGPT 23 U/L (12-78); BILIRUBIN,TOTAL 0.4 MG/DL (0.2-1.0); BLOOD UREA NITROGEN 12 MG/DL (7-18); CALCIUM LEVEL 8.7 MG/DL (8.5-10.1); CARBON DIOXIDE LEVEL 27 MEQ/L (21-32); CHLORIDE LEVEL 109 MEQ/L (98-107); CREATININE FOR GFR 0.75 MG/DL (0.55-1.30); FREE T4 0.95 NG/DL (0.76-1.46); GLOMERULAR FILTRATION RATE > 60.0 (>60); GLUCOSE, FASTING 76 MG/DL (70-100); POTASSIUM SERUM 4.3 MEQ/L (3.5-5.1); SODIUM LEVEL 139 MEQ/L (136-145); TOTAL PROTEIN 6.9 GM/DL (6.4-8.2)
[2022-01-07 13:55] LABS: CK-MB VALUE MASS < 1.0 NG/ML (<3.6); CPK CREATINE PHOSPHOKINASE 77 U/L (26-192)
[2022-01-08 16:13] LABS: EBV AB TO NUCLEAR ANTIGEN >600.0 U/mL (0.0-17.9); EBV VIRAL CAPSID AG IgM <36.0 U/mL (0.0-35.9)
== END ==
LOC: M PLALAB 09:25
PROVIDERS: ATTEND Physician Assistant
DX: R07.89 Other chest pain (principal); Z79.899 Other long term (current) drug therapy

== ENCOUNTER → 2022-01-07 | Outpatient (CLI) | payer OTHER | LOC: M WHC 08:43 | PROVIDERS: ATTEND Physician Assistant | DX: R16.1 Splenomegaly, not elsewhere classified (principal); R10.812 Left upper quadrant abdominal tenderness ==